=== PATIENT | female | born 2000 | race Caucasian/White ===

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

== ENCOUNTER → 2018-06-18 | Outpatient (CLI) | payer OTHER, MEDICAID, SELFPAY ==
[2018-06-18 10:43] VITALS: BMI 22.6
[2018-06-18 14:35] LABS: Chlamydia Trachomatis by PCR Negative (Negative); Neisserai gonorrhoeae by PCR Negative (Negative); Probe Check PASS; Sample Adequacy Control PASS; Specimen Processing Control PASS
== END | disposition home or self-care (01) ==
LOC: LABSPEC 12:41
PROVIDERS: Family Provider Pediatrics; PCP Pediatrics; Referring Provider Nurse Practitioner Women's Health; Visit Provider Nurse Practitioner Women's Health
DX: N89.8 Other specified noninflammatory disorders of vagina (principal)
CPT/HCPCS: 87070; 87205; 87491; 87591

== ENCOUNTER → 2019-08-13 | Outpatient (CLI) | payer MEDICAID, SELFPAY ==
[2019-08-13 09:44] VITALS: BMI 22.6
[2019-08-13 17:06] LABS: Chlamydia Trachomatis by PCR Negative (Negative); Neisserai gonorrhoeae by PCR Negative (Negative); Probe Check PASS; Sample Adequacy Control PASS; Specimen Processing Control PASS
== END | disposition home or self-care (01) ==
PROVIDERS: PCP Pediatrics; Referring Provider Nurse Practitioner Women's Health; Visit Provider Nurse Practitioner Women's Health
DX: Z11.3 Encounter for screening for infections with a predominantly sexual mode of transmission (principal)
CPT/HCPCS: 87491; 87591

== ENCOUNTER → 2020-08-31 | Outpatient (CLI) | payer MEDICAID, SELFPAY ==
[2020-08-31 13:32] VITALS: BMI 25.7
[2020-09-02 16:09] LABS: Chlamydia By Nucleic Acid AMP Negative (Negative)
[2020-09-03 09:27] LABS: Gonococcus By Nucleic Acid AMP Negative (Negative)
[2020-09-03 18:38] LABS: HPV Reflexed? NOT INDICATED
== END | disposition home or self-care (01) ==
PROVIDERS: PCP Pediatrics; Visit Provider Nurse Practitioner Women's Health
DX: Z11.3 Encounter for screening for infections with a predominantly sexual mode of transmission (principal); Z12.4 Encounter for screening for malignant neoplasm of cervix
CPT/HCPCS: 87491; 87591; 88175; G0145